=== PATIENT | female | born 1990 | race African-American/Black ===

== ENCOUNTER 2017-09-27 12:11 | Emergency (ER) | payer OTHER ==
[~2017-09-27] VITALS: Ht 149.9 cm; Wt 64.3 kg
[2017-09-27] MEDS ORDERED: ROBAXIN750 MG PO (13:05)
[2017-09-27 13:17] VITALS: BP 0/0
== END 2017-09-27 13:19 | disposition home or self-care (01) ==
LOC: EME 12:11
DX: M54.5 Low back pain (principal); V43.52XA Car driver injured in collision with other type car in traffic accident, initial encounter; Y92.410 Unspecified street and highway as the place of occurrence of the external cause
CPT/HCPCS: 99281; 99284